=== PATIENT | male | born 1935 | race Caucasian/White ===

== ENCOUNTER 2021-01-08 16:58 | Emergency (ER) | payer OTHER ==
[2021-01-08] MEDS ORDERED: BAMLANIVIMAB 700 MG in SODIUM CHLORIDE 250 ML IVPB ONE (17:20)
[2021-01-08 17:31] VITALS: BMI 31.3
[2021-01-08 18:28] VITALS: BP 111/72; PULSE 75; TEMP 98.7
[2021-01-08 18:49] LABS: HEMATOCRIT 36.2 % (35.4-49); HEMOGLOBIN 12.1 GM/dL (11.7-16.9); MCH 31.4 pg (25.7-33.7); MCHC 33.6 g/dl (32.0-35.9); MEAN CELL VOLUME 93.6 fl (80-96); PLATELET COUNT 124 K/MM3 (134-434); RBC 3.87 M/mm3 (4.00-5.60); RDW 12.6 % (11.9-15.9); WHITE BLOOD COUNT 4.2 K/mm3 (4.0-10.0)
[2021-01-08 19:55] LABS: BLOOD UREA NITROGEN 46.3 mg/dL (7-18); CALCIUM 8.1 mg/dL (8.5-10.1); CREATININE 2.4 mg/dL (0.55-1.3); POTASSIUM 4.6 mmol/L (3.5-5.1)
== END 2021-01-08 20:39 | disposition home or self-care (01) ==
LOC: JER 16:58
DX: U07.1 COVID-19 (principal)
CPT/HCPCS: 36415; 80048; 85027; 99284-25; M0239; Q0239

== ENCOUNTER 2024-07-27 07:06 | Day surgery (SDC) | payer OTHER ==
[2024-07-16 11:47] VITALS: BMI 30.6
[2024-07-27] MEDS ORDERED: LIDOCAINE 1%/EPI 1:100000 (20 ML MULTI DOSE VIAL) ONE (08:55)
[2024-07-27] MEDS ORDERED: ERYTHROMYCIN 0.5% OPHTHALMIC OINTMENT 3.5 GM TUBE ONE (08:55)
[2024-07-27] MEDS ORDERED: ceFAZolin SODIUM 1 GM VIAL ONE ×2 (08:55→09:16)
[2024-07-27] MEDS ORDERED: BUPIVACAINE HCL/PF 0.5% (5MG/ML) 10 ML VIAL ONE (08:55)
[2024-07-27] MEDS ORDERED: TETRACAINE 0.5% OPHTH SOLN 2 ML BOTTLE ONE (08:55)
[2024-07-27] MEDS ORDERED: POVIDONE-IODINE 5% OPHTHALMIC PREP 30 ML SOLUTION ONE (09:07)
[2024-07-27] MEDS ORDERED: LIDOCAINE HCL/PF 2% SDV 5ML VIAL ONE (09:16)
[2024-07-27] MEDS ORDERED: MIDAZOLAM HCL 2 MG/2 ML SINGLE DOSE VIAL ONE (09:17)
[2024-07-27] MEDS ORDERED: PROPOFOL 20 ML ONE ×10 (09:17→13:07)
[2024-07-27] MEDS ORDERED: ePHEDrine SULFATE 50 MG/1 ML AMPULE ONE (10:17)
[2024-07-27] MEDS ORDERED: ONDANSETRON 4 MG/2 ML VIAL ONE (11:29)
[2024-07-27] MEDS ORDERED: oxyCODONE HCL 5 MG TABLET PO PRN (13:37)
[2024-07-27] MEDS ORDERED: ONDANSETRON 4 MG/2 ML VIAL IVPUSH PRN (13:37)
[2024-07-27] MEDS ORDERED: LACTATED RINGERS SOLUTION 1,000 ML IV SCH (13:45)
[2024-07-27 15:09] VITALS: RESP 18; TEMP 97.3
[2024-07-27] MEDS: oxyCODONE HCL 5 MG TABLET ONE (15:30)
[2024-07-27 16:32] VITALS: BP 126/71; PULSE 87
== END 2024-07-27 16:00 | disposition home or self-care (01) ==
LOC: FASU 07:06
PROVIDERS: ATTEND Ophthalmology
PROC: 08SP0ZZ Reposition Left Upper Eyelid, Open Approach (ICD-10-PCS; 2024-07-27)
PROC: 0HX1XZZ Transfer Face Skin, External Approach (ICD-10-PCS; 2024-07-27)
PROC: 08SR0ZZ Reposition Left Lower Eyelid, Open Approach (ICD-10-PCS; principal; 2024-07-27 10:14)
DX: C44.1291 Squamous cell carcinoma of skin of left upper eyelid, including canthus (principal); C44.1292 Squamous cell carcinoma of skin of left lower eyelid, including canthus
CPT/HCPCS: 88304-TC; 94760